=== PATIENT | male | born 1950 | race Caucasian/White ===

== ENCOUNTER 2017-03-06 11:39 | Emergency (ER) | payer MEDICARE ==
[~2017-03-06] VITALS: Ht 193 cm; Wt 104.6 kg
[~2017-03-06 11:39] MED LIST: GABA300C10 PO; GABA600T2 PO; HYDR-3245 PO; LOVA20TA2 PO
[2017-03-06 11:41] VITALS: BP 125/76
[2017-03-06] MEDS ORDERED: APIX2.5T PO (12:33)
[2017-03-06] MEDS ORDERED: FURO40TA6 PO (12:33)
[2017-03-06] MEDS ORDERED: POTA10TA11 PO (12:33)
== END 2017-03-06 13:38 | disposition home or self-care (01) ==
LOC: ED 13:25
DX: S06.0X0A Concussion without loss of consciousness, initial encounter (principal); F07.81 Postconcussional syndrome; X58.XXXA Exposure to other specified factors, initial encounter; Y93.89 Activity, other specified; Y92.89 Other specified places as the place of occurrence of the external cause; Y99.8 Other external cause status
CPT/HCPCS: 70450; 99284

== ENCOUNTER 2017-12-21 09:20 | Emergency (ER) | payer MEDICARE ==
[~2017-12-21] VITALS: Ht 193 cm; Wt 103.2 kg
[~2017-12-21 09:20] MED LIST changes: +APIX2.5T PO; +FURO40TA6 PO; +POTA10TA11 PO
[2017-12-21] MEDS ORDERED: ONDANSETRON 2MG/ML, 2ML ONE (09:51)
[2017-12-21] MEDS ORDERED: MORPHINE SULFATE 4 MG/ML, 1ML ONE (09:51)
[2017-12-21 10:16] VITALS: BP 101/55
[2017-12-21] MEDS ORDERED: ONDANSETRON 2MG/ML, 2ML IVPush ONE (10:30)
[2017-12-21] MEDS ORDERED: morphine SULFATE 10 MG/ML, 1ML IVPush ONE (10:30)
== END 2017-12-21 11:24 | disposition home or self-care (01) ==
LOC: ED 10:30
DX: S82.444A Nondisplaced spiral fracture of shaft of right fibula, initial encounter for closed fracture (principal); S82.54XA Nondisplaced fracture of medial malleolus of right tibia, initial encounter for closed fracture; F17.200 Nicotine dependence, unspecified, uncomplicated; W19.XXXA Unspecified fall, initial encounter; Y93.89 Activity, other specified; Y92.89 Other specified places as the place of occurrence of the external cause; Y99.8 Other external cause status
CPT/HCPCS: 29505; 73590; 93971; 96374; 96375; 99284; J2270; J2405